=== PATIENT | female | born 2000 | race Caucasian/White ===

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

== ENCOUNTER 2022-04-19 12:11 | Emergency (ER) | payer OTHER ==
[2022-04-19 12:52] VITALS: BP 85/55; PULSE 78; RESP 17; TEMP 97.8
[2022-04-19] MEDS ORDERED: LIDOCAINE 5% TOPICAL PATCH TP ONE (13:18)
[2022-04-19] MEDS ORDERED: ACETAMINOPHEN 500 MG TABLET (FP) PO ONE (13:18)
[2022-04-19] MEDS ORDERED: ACETAMINOPHEN 500 MG TABLET (FP) ONE (13:28)
[2022-04-19] MEDS ORDERED: LIDOCAINE 5% TOPICAL PATCH ONE (13:28)
[2022-04-19] MEDS ORDERED: LIDOCAINE PATCH REMOVAL MC ONE (22:00)
== END 2022-04-19 14:54 | disposition home or self-care (01) ==
LOC: JERFT 12:11
DX: M54.50 Low back pain, unspecified (principal); V49.9XXA Car occupant (driver) (passenger) injured in unspecified traffic accident, initial encounter
CPT/HCPCS: 72100-TC-FY; 82962; 99284-25